=== PATIENT | female | born 1950 | race Two or more races ===

== ENCOUNTER 2020-06-17 10:17 | Outpatient (CLI) | payer OTHER | END 2020-06-17 23:59 | disposition home or self-care (01) | LOC: MSC 10:17 | PROVIDERS: ATTEND Internal Medicine | DX: L03.116 Cellulitis of left lower limb (principal); L03.115 Cellulitis of right lower limb; J44.9 Chronic obstructive pulmonary disease, unspecified; E11.9 Type 2 diabetes mellitus without complications; Z79.84 Long term (current) use of oral hypoglycemic drugs; I10 Essential (primary) hypertension; K27.9 Peptic ulcer, site unspecified, unspecified as acute or chronic, without hemorrhage or perforation; D64.9 Anemia, unspecified; I25.10 Atherosclerotic heart disease of native coronary artery without angina pectoris; I73.9 Peripheral vascular disease, unspecified; I87.2 Venous insufficiency (chronic) (peripheral); Z79.899 Other long term (current) drug therapy ==